=== PATIENT | female | born 1995 | race Caucasian/White ===

== ENCOUNTER 2018-05-04 12:41 | Emergency (ER) | payer OTHER ==
[2018-05-04] MEDS ORDERED: Sodium Chloride 0.9% 2.5 ML Syringe FLUSH PRN (12:43)
[2018-05-04] MEDS ORDERED: Sodium Chloride 0.9% 10 ML Syringe FLUSH PRN (12:43)
--- NOTE | 2018-05-04 13:08 | EDM.PDOC ---
ED HPI GENERAL MEDICAL PROBLEM - General Chief Complaint: BIOCHEMIST Problem Stated Complaint: 15 WKS WITH BLEEDING Time Seen by Provider: 05/04/18 12:58 - History of Present Illness INITIAL COMMENTS - FREE TEXT/NARRATIVE: HISTORY AND PHYSICAL: History of present illness: The patient is a 22-year-old female who is a 2 para one with LMP of January 18 who is 15 weeks by that date and had an in office ultrasound with Dr. George at the beginning of the month documenting an IUP and who presents today with an episode of vaginal bleeding. The patient says that this is been an uneventful and she has no pre-existing medical problems or surgical history. She said she woke at 6:30 this morning and did not have blood in her underwear and was taking a shower when she passed a small clot and a small amount of blood in the shower. Since that time she has not had any vaginal bleeding and has not used the pads and has only seen a scant amount of pink blood on the toilet paper when she wipes. She has had some lower abdominal cramping radiating to her back. The patient has had no vomiting dysuria frequency flank pain or diarrhea and has had no fever chills or runny nose. Review of systems: As per history of present illness and below otherwise all systems reviewed and negative. Past medical history: As per history of present illness and as reviewed below otherwise noncontributory. Surgical history: As per history of present illness and as reviewed below otherwise noncontributory. Social history: No reported history of drug or alcohol abuse. Family history: As per history of present illness and as reviewed below otherwise noncontributory. Physical exam: General: Well-developed well-nourished female who is nontoxic and vital signs are reviewed by me HEENT: Atraumatic, normocephalic, negative for conjunctival pallor or scleral icterus, mucous membranes moist, throat clear, neck supple, nontender, trachea midline. Lungs: Clear to auscultation, breath sounds equal bilaterally, chest nontender. Heart: S1S2, regular rate and rhythm no overt murmurs Abdomen: Soft, nondistended, nontender. Negative for masses or hepatosplenomegaly. Negative for costovertebral tenderness. Pelvis: Stable nontender. Genitourinary: Deferred. Rectal: Deferred. Extremities: Atraumatic, negative for cords or calf pain. Neurovascular unremarkable. Neuro: Awake, alert, oriented. Cranial nerves II through XII unremarkable. Cerebellum unremarkable. Motor and sensory unremarkable throughout. Exam nonfocal. Diagnostics: CBC serum quantitative hCG UA urine culture if indicated pelvic ultrasound And has a documented O+ blood type in the computer Therapeutics: [] 1435: Ultrasound results and case were discussed with Dr. George and he will see the patient on Wednesday. As it turns out the patient already has a scheduled appointment in the afternoon on Wednesday to see him and he knows that she will be coming on that date to discuss further care and treatment of a demise. The patient is aware of the ultrasound results and the labs and is aware of reasons to return to the ED. Impression: Second trimester bleeding in , demise Definitive disposition and diagnosis as appropriate pending reevaluation and review of above. Abdominal Pain Score (Numeric/FACES): 6 - Related Data Allergies Allergy/AdvReac Type Severity Reaction Status Date / Time No Known Allergies Allergy Verified 05/04/18 12:54 Home Meds: Home Meds . [No Known Home Meds] 05/04/18 [History] Past Medical History - Past Health History Medical/Surgical History: Denies Medical/Surgical History - Infectious Disease History Infectious Disease History: Reports: None Social & Family History - Family History Family Medical History: Noncontributory - Tobacco Use Smoking Status *Q: Current Every Day Smoker Years of Tobacco use: 8 Packs/Tins Daily: 0.1 - Caffeine Use Caffeine Use: Reports: None - Recreational Drug Use Recreational Drug Use: No ED ROS GENERAL - Review of Systems Review Of Systems: ROS reveals no pertinent complaints other than HPI. ED EXAM, GENERAL - Physical Exam Exam: See Below (see dictation) Course - Vital Signs Last Recorded V/S: Last Vital Signs Temp 36.6 C 05/04/18 12:54 Pulse 81 05/04/18 12:54 Resp 16 05/04/18 12:54 BP 124/81 05/04/18 12:54 Pulse Ox 99 05/04/18 12:54 - Orders/Labs/Meds Orders: Active Orders 24 hr Category Date Time Status OB Ltd 1 or More Fetus [US] Stat Exams 05/04/18 13:04 Taken UA W/MICROSCOPIC [URIN] Stat Lab 05/04/18 13:08 Ordered Labs: Laboratory Tests 05/04/18 05/04/18 05/04/18 Range/Units 13:08 13:37 13:37 WBC 11.22 H (4.0-11.0) K/uL RBC 4.23 L (4.30-5.90) M/uL Hgb 12.3 (12.0-16.0) g/dL Hct 36.9 (36.0-46.0) % MCV 87.2 (80.0-98.0) fL MCH 29.1 (27.0-32.0) pg MCHC 33.3 (31.0-37.0) g/dL RDW Std Deviation 40.0 (28.0-62.0) fl RDW Coeff of Rosa 13 (11.0-15.0) % Plt Count 247 (150-400) K/uL MPV 10.80 (7.40-12.00) fL Neut % (Auto) 69.0 (48.0-80.0) % Lymph % (Auto) 23.1 (16.0-40.0) % Park % (Auto) 6.1 (0.0-15.0) % Eos % (Auto) 1.5 (0.0-7.0) % Baso % (Auto) 0.3 (0.0-1.5) % Neut # (Auto) 7.8 H (1.4-5.7) K/uL Lymph # (Auto) 2.6 H (0.6-2.4) K/uL Park # (Auto) 0.7 (0.0-0.8) K/uL Eos # (Auto) 0.2 (0.0-0.7) K/uL Baso # (Auto) 0.0 (0.0-0.1) K/uL Nucleated RBC % 0.0 /100WBC Nucleated RBCs # 0 K/uL HCG, Quant 797.0 mIU/mL Urine Color YELLOW Urine Appearance CLEAR Urine pH 6.0 (5.0-8.0) Ur Specific [place] >= 1.030 (1.001-1.035) Urine Protein NEGATIVE (NEGATIVE) mg/dL Urine Glucose (UA) NEGATIVE (NEGATIVE) mg/dL Urine Ketones 15 H (NEGATIVE) mg/dL Urine Occult Blood TRACE-INTACT (NEGATIVE) Urine Nitrite NEGATIVE (NEGATIVE) Urine Bilirubin NEGATIVE (NEGATIVE) Urine Urobilinogen 0.2 (<2.0) EU/dL Ur Leukocyte Esterase NEGATIVE (NEGATIVE) Urine RBC 1-2 (0-2/HPF) Urine WBC 0-1 (0-5/HPF) Ur Epithelial Cells OCCASIONAL (NONE-FEW) Urine Bacteria RARE (NEGATIVE) Meds: Medications Discontinued Medications Generic Name Dose Route Start Last Admin Trade Name Freq PRN Reason Stop Dose Admin Sodium Chloride 10 ml 05/04/18 12:43 Saline Flush FLUSH ASDIRECTED PRN Keep Vein Open Sodium Chloride 2.5 ml 05/04/18 12:43 Saline Flush FLUSH ASDIRECTED PRN Keep Vein Open Departure - Departure Time of Disposition: 14:43 Disposition: Home, Self-Care 01 Condition: Good Clinical Impression: demise - Discharge Information Referrals: PCP,None [Primary Care Provider] - Forms: ED Department Discharge Additional Instructions: The following information is given to patients seen in the emergency department who are being discharged to home. This information is to outline your options for follow-up care. We provide all patients seen in our emergency department with a follow-up referral. The need for follow-up, as well as the timing and circumstances, are variable depending upon the specifics of your emergency department visit. If you don't have a primary care physician on staff, we will provide you with a referral. We always advise you to contact your personal physician following an emergency department visit to inform them of the circumstance of the visit and for follow-up with them and/or the need for any referrals to a consulting specialist. The emergency department will also refer you to a specialist when appropriate. This referral assures that you have the opportunity for followup care with a specialist. All of these measure are taken in an effort to provide you with optimal care, which includes your followup. Under all circumstances we always encourage you to contact your private physician who remains a resource for coordinating your care. When calling for followup care, please make the office aware that this follow-up is from your recent emergency room visit. If for any reason you are refused follow-up, please contact the [facility] emergency department at and ask to speak to the emergency department charge nurse. [facility] [address] [place] [address] Push hydration and rest and strict pelvic rest with no sexual intercourse until you're seen by Dr. George on Wednesday. These keep your appointment on Wednesday as scheduled with him to discuss future care plan. Return to ER as needed and as discussed. - My Orders Last 24 Hours: My Active Orders 05/04/18 13:04 OB Ltd 1 or More Fetus [US] Stat - Assessment/Plan Last 24 Hours: My Active Orders 05/04/18 13:04 OB Ltd 1 or More Fetus [US] Stat
[2018-05-04 15:07] VITALS: BP 127/74
--- NOTE | 2018-05-04 18:20 | US ---
EXAM DATE: 05/04/18 PATIENT'S AGE: 22 Patient: ANAND GALVAN Facility: [place], [place] Site . Site : 1995 Study: US OB Pelvis [id number] 1:37:28 PM Ordering Physician: Pamela Buck Final Report: HISTORY: Abdominal pain, vaginal bleeding. TECHNIQUE: Limited obstetric ultrasound. Transabdominal imaging performed. COMPARISON: No prior. FINDINGS: There is a single intrauterine gestation with a calculated gestational age based on ultrasound measurements of 13 weeks, 5 days. This lags behind a clinical age of 15 weeks, 5 days based on LMP. The estimated weight is 88 g which is at the less than 3rd percentile. No cardiac activity is seen compatible with demise. No subchorionic bleed appreciated. Cervix appears closed measuring on the order of 3 centimeters. - Measurements: Biparietal diameter 2 cm 13 weeks, 2 days. Head circumference 8.4 cm 13 weeks 5 days. Abdominal circumference 7.3 cm 13 weeks, 6 days. Femur length 4.5 cm 14 weeks, 2 days. IMPRESSION: 1. Single intrauterine gestation without cardiac activity detected compatible with demise. 2. Cervix appears closed. 3. Report called to Dr. Santiago on 05/04/2018 at 14:23 hours. Dictated by Jatin Watkins MD @ 05/04/2018 2:25:11 PM Dictated by: Jatin Watkins MD @ 05/04/2018 14:25:17 (Electronic Signature) Report Signed by Proxy. LUIGI
== END 2018-05-04 14:54 | disposition home or self-care (01) ==
LOC: MW.ED 12:41
DX: O02.1 Missed abortion (principal)
CPT/HCPCS: 36415; 76815; 76815-26; 81001; 84702; 85025; 99284-25

== ENCOUNTER 2018-05-05 03:38 | Emergency (ER) | payer OTHER ==
--- NOTE | 2018-05-05 03:51 | EDM.PDOC ---
ED HPI GENERAL MEDICAL PROBLEM - General Chief Complaint: Genitourinary Problem Stated Complaint: MISCARRIAGE Time Seen by Provider: 05/05/18 03:43 - History of Present Illness INITIAL COMMENTS - FREE TEXT/NARRATIVE: HISTORY AND PHYSICAL: History of present illness: Patient is a 22-year-old female who had approximately 13 week intrauterine that was seen initially in the ER and diagnosed with demise she had an ultrasound at that time that demonstrated a 13 week intrauterine this was single in nature and without cardiac activity she presents tonight with vaginal bleeding that she describes as small to moderate not particularly increased from yesterday and states she has passed some tissue. She is a crampy discomfort with this which is her chief complaint chest pain shortness of breath dizziness or other concern Review of systems: As per history of present illness and below otherwise all systems reviewed and negative. Past medical history: As per history of present illness and as reviewed below otherwise noncontributory. Surgical history: As per history of present illness and as reviewed below otherwise noncontributory. Social history: No reported history of drug or alcohol abuse. Family history: As per history of present illness and as reviewed below otherwise noncontributory. Physical exam: HEENT: Atraumatic, normocephalic, pupils reactive, negative for conjunctival pallor or scleral icterus, mucous membranes moist, throat clear, neck supple, nontender, trachea midline. Lungs: Clear to auscultation, breath sounds equal bilaterally, chest nontender. Heart: S1S2, regular, negative for clicks, rubs, or JVD. Abdomen: Soft, nondistended, no localized tenderness. Negative for masses or hepatosplenomegaly. Negative for costovertebral tenderness. Pelvis: Stable nontender. Genitourinary: Deferred. Rectal: Deferred. Extremities: Atraumatic, negative for cords or calf pain. Neurovascular unremarkable. Neuro: Awake, alert, oriented. Cranial nerves II through XII unremarkable. Cerebellum unremarkable. Motor and sensory unremarkable throughout. Exam nonfocal. Diagnostics: CBC CMP quantitative beta-hCG Therapeutics: Saline 1 L bolus morphine sulfate 2 mg IV Zofran 4 mg IV Impression: #1 demise Definitive disposition and diagnosis as appropriate pending reevaluation and review of above. - Related Data Allergies Allergy/AdvReac Type Severity Reaction Status Date / Time No Known Allergies Allergy Verified 05/04/18 12:54 Home Meds: Home Meds . [No Known Home Meds] 05/04/18 [History] Past Medical History - Past Health History Medical/Surgical History: Denies Medical/Surgical History - Infectious Disease History Infectious Disease History: Reports: None Social & Family History - Family History Family Medical History: Noncontributory - Caffeine Use Caffeine Use: Reports: None ED ROS GENERAL - Review of Systems Review Of Systems: ROS reveals no pertinent complaints other than HPI. ED EXAM, GENERAL - Physical Exam Exam: See Below (dictation) Course - Vital Signs Last Recorded V/S: Last Vital Signs Temp 36.3 C 05/05/18 04:06 Pulse 130 H 05/05/18 04:06 Resp 18 05/05/18 04:06 BP 95/56 L 05/05/18 04:06 Pulse Ox 97 05/05/18 04:06 - Orders/Labs/Meds Orders: Active Orders 24 hr Category Date Time Status COMPREHENSIVE METABOLIC PN,CMP [CHEM] Stat Lab 05/05/18 03:53 Results HCG QUANTITATIVE,SERUM [CHEM] Stat Lab 05/05/18 03:53 Results Labs: Laboratory Tests 05/05/18 05/05/18 Range/Units 03:53 03:53 WBC 11.87 H (4.0-11.0) K/uL RBC 4.09 L (4.30-5.90) M/uL Hgb 12.0 (12.0-16.0) g/dL Hct 35.8 L (36.0-46.0) % MCV 87.5 (80.0-98.0) fL MCH 29.3 (27.0-32.0) pg MCHC 33.5 (31.0-37.0) g/dL RDW Std Deviation 40.2 (28.0-62.0) fl RDW Coeff of Rosa 13 (11.0-15.0) % Plt Count 253 (150-400) K/uL MPV 10.40 (7.40-12.00) fL Neut % (Auto) 68.0 (48.0-80.0) % Lymph % (Auto) 23.3 (16.0-40.0) % [place] % (Auto) 6.5 (0.0-15.0) % Eos % (Auto) 1.9 (0.0-7.0) % Baso % (Auto) 0.3 (0.0-1.5) % Neut # (Auto) 8.1 H (1.4-5.7) K/uL Lymph # (Auto) 2.8 H (0.6-2.4) K/uL [place] # (Auto) 0.8 (0.0-0.8) K/uL Eos # (Auto) 0.2 (0.0-0.7) K/uL Baso # (Auto) 0.0 (0.0-0.1) K/uL Nucleated RBC % 0.0 /100WBC Nucleated RBCs # 0 K/uL Sodium 141 (136-145) mmol/L Potassium 4.1 (3.5-5.1) mmol/L Chloride 106 (98-107) mmol/L Carbon Dioxide 23.4 (21.0-32.0) mmol/L BUN 14 (7.0-18.0) mg/dL Creatinine 0.8 (0.6-1.0) mg/dL Est Cr Clr Drug Dosing 90.47 mL/min Estimated GFR (MDRD) > 60.0 ml/min Glucose (74-106) mg/dL AST 18 (15-37) IU/L ALT 20 (14-63) IU/L Total Protein 9.1 H (6.4-8.2) g/dL Albumin 3.3 L (3.4-5.0) g/dL Globulin 5.8 H (2.0-3.5) g/dL Albumin/Globulin Ratio 0.6 L (1.3-2.8) Meds: Medications Discontinued Medications Generic Name Dose Route Start Last Admin Trade Name Freq PRN Reason Stop Dose Admin Sodium Chloride 1,000 mls @ 999 mls/hr 05/05/18 03:58 05/05/18 04:21 Normal Saline IV 05/05/18 04:58 999 mls/hr .Bolus ONE Administration Morphine Sulfate 2 mg 05/05/18 03:58 05/05/18 04:06 Morphine IVPUSH 05/05/18 03:59 2 mg ONETIME ONE Administration Ondansetron HCl 4 mg 05/05/18 03:58 05/05/18 04:08 Zofran IVPUSH 05/05/18 03:59 4 mg ONETIME ONE Administration Departure - Departure Time of Disposition: 05:13 Disposition: Home, Self-Care 01 Condition: Good Clinical Impression: demise - Discharge Information *PRESCRIPTION DRUG MONITORING PROGRAM REVIEWED*: Not Applicable *COPY OF PRESCRIPTION DRUG MONITORING REPORT IN PATIENT ZACHARIAH: Not Applicable Referrals: PCP,None [Primary Care Provider] - Forms: ED Department Discharge Additional Instructions: The following information is given to patients seen in the emergency department who are being discharged to home. This information is to outline your options for follow-up care. We provide all patients seen in our emergency department with a follow-up referral. The need for follow-up, as well as the timing and circumstances, are variable depending upon the specifics of your emergency department visit. If you don't have a primary care physician on staff, we will provide you with a referral. We always advise you to contact your personal physician following an emergency department visit to inform them of the circumstance of the visit and for follow-up with them and/or the need for any referrals to a consulting specialist. The emergency department will also refer you to a specialist when appropriate. This referral assures that you have the opportunity for followup care with a specialist. All of these measure are taken in an effort to provide you with optimal care, which includes your followup. Under all circumstances we always encourage you to contact your private physician who remains a resource for coordinating your care. When calling for followup care, please make the office aware that this follow-up is from your recent emergency room visit. If for any reason you are refused follow-up, please contact the [facility] emergency department at and asked to speak to the emergency department charge nurse. Follow-up with [facility] today return as needed as discussed - My Orders Last 24 Hours: My Active Orders 05/05/18 03:53 COMPREHENSIVE METABOLIC PN,CMP [CHEM] Stat HCG QUANTITATIVE,SERUM [CHEM] Stat - Assessment/Plan Last 24 Hours: My Active Orders 05/05/18 03:53 COMPREHENSIVE METABOLIC PN,CMP [CHEM] Stat HCG QUANTITATIVE,SERUM [CHEM] Stat
[2018-05-05] MEDS ORDERED: Ondansetron 4 MG/2 ML SDV IVPUSH ONE (03:58)
[2018-05-05] MEDS ORDERED: Sodium Chloride 0.9% 1,000 ML IV ONE (03:58)
[2018-05-05] MEDS ORDERED: Morphine 2 MG/ML Syringe IVPUSH ONE ×2 (03:58→05:34)
[2018-05-05 04:41] LABS: CHLORIDE,CL 106 mmol/L (98-107); SODIUM,NA 141 mmol/L (136-145)
[2018-05-05 06:31] VITALS: BP 113/66
== END 2018-05-05 06:27 | disposition home or self-care (01) ==
LOC: MW.ED 03:38
DX: O02.1 Missed abortion (principal); Z3A.13 13 weeks gestation of pregnancy
CPT/HCPCS: 80053; 84702; 85025; 96361; 96374; 96375; 96376; 99284; J2270; J2405; J7040

== ENCOUNTER 2018-09-25 08:48 | Emergency (ER) | payer OTHER ==
[2018-09-25 09:02] VITALS: BP 130/69
[2018-09-25] MEDS ORDERED: Ibuprofen 800 MG Tab PO ONE (09:17)
--- NOTE | 2018-09-25 09:21 | EDM.PDOC ---
ED HPI GENERAL MEDICAL PROBLEM - General Chief Complaint: ENT Problem Stated Complaint: EAR INFECTION AND SORE THROAT Time Seen by Provider: 09/25/18 09:04 Source of Information: Reports: Patient History Limitations: Reports: No Limitations - History of Present Illness INITIAL COMMENTS - FREE TEXT/NARRATIVE: History of present illness: []Patient has a 4 day history of sore throat and ear pressure. She's been taking NyQuil with relief at night. Patient denies any fevers, chills, nausea or vomiting. Review of systems: As per history of present illness and below otherwise all systems reviewed and negative. Past medical history: As per history of present illness and as reviewed below otherwise noncontributory. Surgical history: As per history of present illness and as reviewed below otherwise noncontributory. Social history: No reported history of drug or alcohol abuse. Family history: As per history of present illness and as reviewed below otherwise noncontributory. Physical exam: General: Well developed, well nourished in NAD HEENT: Atraumatic, normocephalic, pupils reactive, negative for conjunctival pallor or scleral icterus, mucous membranes moist, throat erythema with exudate , neck supple, nontender, trachea midline. TMs clear there is no air-fluid levels/ bubbles behind the right TM. Lungs: Clear to auscultation, breath sounds equal bilaterally, chest nontender. Heart: S1S2, regular, negative for clicks, rubs, or JVD. Abdomen: NABS, Soft, nondistended, nontender. Negative for masses or hepatosplenomegaly. Negative for costovertebral tenderness. Pelvis: Stable nontender. Genitourinary: Deferred. Rectal: Deferred. Extremities: Atraumatic, negative for cords or calf pain. Neurovascular unremarkable. Neuro: Awake, alert, oriented. Cranial nerves II through XII unremarkable. Cerebellum unremarkable. Motor and sensory unremarkable throughout. Exam nonfocal. Skin:warm and dry Diagnostics: Strep culture negative Therapeutics: Ibuprofen ED Course: Unremarkable Impression: Acute pharyngitis Prescriptions: 5 days Plan: Take [id number] decongestants, prednisone as directed ibuprofen Tylenol for pain and fevers. Definitive disposition and diagnosis as appropriate pending reevaluation and review of above. 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 Musculoskeletal History: Reports: None Neurological History: Reports: None Psychiatric History: Reports: None Endocrine/Metabolic History: Reports: None Hematologic History: Reports: None Immunologic History: Reports: None Oncologic (Cancer) History: Reports: None Dermatologic History: Reports: None - Infectious Disease History Infectious Disease History: Reports: None - Past Surgical History Head Surgeries/Procedures: Reports: None HEENT Surgical History: Reports: None Cardiovascular Surgical History: Reports: None Respiratory Surgical History: Reports: None GI Surgical History: Reports: None Female Surgical History: Reports: None Endocrine Surgical History: Reports: None Neurological Surgical History: Reports: None Musculoskeletal Surgical History: Reports: None Oncologic Surgical History: Reports: None Dermatological Surgical History: Reports: None Social & Family History - Family History Family Medical History: Noncontributory - Tobacco Use Smoking Status *Q: Current Every Day Smoker Years of Tobacco use: 6 Packs/Tins Daily: 0.5 - Caffeine Use Caffeine Use: Reports: Coffee, Energy Drinks, Soda, Tea - Alcohol Use Days Per Week of Alcohol Use: 7 Number of Drinks Per Day: 7 Total Drinks Per Week: 49 - Recreational Drug Use Recreational Drug Use: No ED ROS ENT - Review of Systems Review Of Systems: ROS reveals no pertinent complaints other than HPI. ED EXAM, ENT - Physical Exam Exam: See Below (See history of present illness) Course - Vital Signs Last Recorded V/S: Last Vital Signs Temp 98.1 F 09/25/18 08:59 Pulse 124 H 09/25/18 08:59 Resp 18 09/25/18 08:59 BP 130/69 09/25/18 08:59 Pulse Ox 97 09/25/18 08:59 - Orders/Labs/Meds Orders: Active Orders 24 hr Category Date Time Status CULTURE STREP A CONFIRMATION [RM] Stat Lab 09/25/18 09:05 Results STREP SCRN A RAPID W CULT CONF [RM] Stat Lab 09/25/18 09:05 Results Meds: Medications Discontinued Medications Generic Name Dose Route Start Last Admin Trade Name Clarence PRN Reason Stop Dose Admin Ibuprofen 800 mg 09/25/18 09:17 09/25/18 09:30 Motrin PO 09/25/18 09:18 800 mg ONETIME ONE Administration Departure - Departure Time of Disposition: 09:40 Disposition: Home, Self-Care 01 Condition: Good Clinical Impression: Exudative pharyngitis - Discharge Information *PRESCRIPTION DRUG MONITORING PROGRAM REVIEWED*: No *COPY OF PRESCRIPTION DRUG MONITORING REPORT IN PATIENT ZACHARIAH: No Prescriptions: predniSONE [Prednisone] 20 mg PO DAILY #5 tablet Referrals: PCP,Unknown [Primary Care Provider] - Forms: ED Department Discharge Additional Instructions: The following information is given to patients seen in the emergency department who are being discharged to home. This information is to outline your options for follow-up care. We provide all patients seen in our emergency department with a follow-up referral. The need for follow-up, as well as the timing and circumstances, are variable depending upon the specifics of your emergency department visit. If you don't have a primary care physician on staff, we will provide you with a referral. We always advise you to contact your personal physician following an emergency department visit to inform them of the circumstance of the visit and for follow-up with them and/or the need for any referrals to a consulting specialist. The emergency department will also refer you to a specialist when appropriate. This referral assures that you have the opportunity for follow-up care with a specialist. All of these measure are taken in an effort to provide you with optimal care, which includes your follow-up. Under all circumstances we always encourage you to contact your private physician who remains a resource for coordinating your care. When calling for follow-up care, please make the office aware that this follow-up is from your recent emergency room visit. If for any reason you are refused follow-up, please contact the [facility] Emergency Department at and asked to speak to the emergency department charge nurse. [facility] [address] [place] [id number] - My Orders Last 24 Hours: My Active Orders 09/25/18 09:05 CULTURE STREP A CONFIRMATION [RM] Stat STREP SCRN A RAPID W CULT CONF [] Stat - Assessment/Plan Last 24 Hours: My Active Orders 09/25/18 09:05 CULTURE STREP A CONFIRMATION [RM] Stat STREP SCRN A RAPID W CULT CONF [RM] Stat
== END 2018-09-25 09:55 | disposition home or self-care (01) ==
LOC: MW.ED 08:48
DX: J02.9 Acute pharyngitis, unspecified (principal); F17.210 Nicotine dependence, cigarettes, uncomplicated
CPT/HCPCS: 87081; 87880; 99283; A9270

== ENCOUNTER 2019-02-01 20:29 | Emergency (ER) | payer SELFPAY ==
--- NOTE | 2019-02-01 20:34 | EDM.PDOC ---
ED HPI GENERAL MEDICAL PROBLEM - General Stated Complaint: 9 WKS AND HAVING PAINS Time Seen by Provider: 02/01/19 20:33 Source of Information: Reports: Patient - History of Present Illness INITIAL COMMENTS - FREE TEXT/NARRATIVE: HISTORY AND PHYSICAL: History of present illness: [Patient reports that she was with approximately 9 week however she is uncertain of her LMP Has a history of 2 prior miscarriages and these records are on file no fever nausea vomiting chills sweats no chest pain shortness breath headache dizziness palpitation no bowel or urine symptoms small crampy abdominal pain 2 out of 10 nonradiating rated as tolerable ] Review of systems: As per history of present illness and below otherwise all systems reviewed and negative. Past medical history: As per history of present illness and as reviewed below otherwise noncontributory. Surgical history: As per history of present illness and as reviewed below otherwise noncontributory. Social history: No reported history of drug or alcohol abuse. Family history: As per history of present illness and as reviewed below otherwise noncontributory. Physical exam: HEENT: Atraumatic, normocephalic, pupils reactive, negative for conjunctival pallor or scleral icterus, mucous membranes moist, throat clear, neck supple, nontender, trachea midline. Lungs: Clear to auscultation, breath sounds equal bilaterally, chest nontender. Heart: S1S2, regular, negative for clicks, rubs, or JVD. Abdomen: Soft, nondistended, nontender. Negative for masses or hepatosplenomegaly. Negative for costovertebral tenderness. Pelvis: Stable nontender. Genitourinary: Deferred. Rectal: Deferred. Extremities: Atraumatic, negative for cords or calf pain. Neurovascular unremarkable. Neuro: Awake, alert, oriented. Cranial nerves II through XII unremarkable. Cerebellum unremarkable. Motor and sensory unremarkable throughout. Exam nonfocal. Diagnostics: [EBC CMP hCG Quant OB ultrasound limited ] Therapeutics: [Normal saline ] Impression: [Abdominal pain/cramps-improved ]ABO type O positive on file Blighted ovum versus very early Definitive disposition and diagnosis as appropriate pending reevaluation and review of above. abdominal Pain Score (Numeric/FACES): 4 - Related Data Allergies Allergy/AdvReac Type Severity Reaction Status Date / Time No Known Allergies Allergy Verified 02/01/19 20:44 Home Meds: Home Meds . 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 Musculoskeletal History: Reports: None Neurological History: Reports: None Psychiatric History: Reports: None Endocrine/Metabolic History: Reports: None Hematologic History: Reports: None Immunologic History: Reports: None Oncologic (Cancer) History: Reports: None Dermatologic History: Reports: None - Infectious Disease History Infectious Disease History: Reports: None - Past Surgical History Head Surgeries/Procedures: Reports: None HEENT Surgical History: Reports: None Cardiovascular Surgical History: Reports: None Respiratory Surgical History: Reports: None GI Surgical History: Reports: None Female Surgical History: Reports: None Endocrine Surgical History: Reports: None Neurological Surgical History: Reports: None Musculoskeletal Surgical History: Reports: None Oncologic Surgical History: Reports: None Dermatological Surgical History: Reports: None Social & Family History - Family History Family Medical History: Noncontributory - Caffeine Use Caffeine Use: Reports: Coffee, Energy Drinks, Soda, Tea ED ROS GENERAL - Review of Systems Review Of Systems: See Below ED EXAM, GENERAL - Physical Exam Exam: See Below Course - Vital Signs Last Recorded V/S: Last Vital Signs Temp 97.1 F 02/01/19 23:39 Pulse 75 02/01/19 23:39 Resp 14 02/01/19 23:39 BP 123/72 02/01/19 23:39 Pulse Ox 98 02/01/19 22:39 - Orders/Labs/Meds Orders: Active Orders 24 hr Category Date Time Status OB Ltd 1 or More Fetus [US] Stat Exams 02/01/19 20:51 Taken CULTURE URINE [RM] Stat Lab 02/01/19 20:48 Received Labs: Laboratory Tests 02/01/19 02/01/19 02/01/19 Range/Units 20:36 20:36 20:48 WBC 15.08 H (4.0-11.0) K/uL RBC 4.57 (4.30-5.90) M/uL Hgb 13.6 (12.0-16.0) g/dL Hct 41.8 (36.0-46.0) % MCV 91.5 (80.0-98.0) fL MCH 29.8 (27.0-32.0) pg MCHC 32.5 (31.0-37.0) g/dL RDW Std Deviation 45.0 (28.0-62.0) fl RDW Coeff of Rosa 14 (11.0-15.0) % Plt Count 289 (150-400) K/uL MPV 11.20 (7.40-12.00) fL Neut % (Auto) 66.1 (48.0-80.0) % Lymph % (Auto) 23.6 (16.0-40.0) % Reagan % (Auto) 8.4 (0.0-15.0) % Eos % (Auto) 1.5 (0.0-7.0) % Baso % (Auto) 0.4 (0.0-1.5) % Neut # (Auto) 10.0 H (1.4-5.7) K/uL Lymph # (Auto) 3.6 H (0.6-2.4) K/uL Reagan # (Auto) 1.3 H (0.0-0.8) K/uL Eos # (Auto) 0.2 (0.0-0.7) K/uL Baso # (Auto) 0.1 (0.0-0.1) K/uL Nucleated RBC % 0.0 /100WBC Nucleated RBCs # 0 K/uL Sodium 139 (136-145) mmol/L Potassium 3.9 (3.5-5.1) mmol/L Chloride 104 (98-107) mmol/L Carbon Dioxide 25.9 (21.0-32.0) mmol/L BUN 16 (7.0-18.0) mg/dL Creatinine 1.0 (0.6-1.0) mg/dL Est Cr Clr Drug Dosing 68.61 mL/min Estimated GFR (MDRD) > 60.0 ml/min Glucose 97 (74-106) mg/dL Calcium 9.3 (8.5-10.1) mg/dL Total Bilirubin 0.3 (0.2-1.0) mg/dL AST 24 (15-37) IU/L ALT 35 (14-63) IU/L Alkaline Phosphatase 89 (46-116) U/L Total Protein 8.2 (6.4-8.2) g/dL Albumin 4.3 (3.4-5.0) g/dL Globulin 3.9 (2.6-4.0) g/dL Albumin/Globulin Ratio 1.1 (0.9-1.6) HCG, Quant 466.0 mIU/mL Urine Color YELLOW Urine Appearance CLEAR Urine pH 6.5 (5.0-8.0) Ur Specific [place] <= 1.005 (1.001-1.035) Urine Protein NEGATIVE (NEGATIVE) mg/dL Urine Glucose (UA) NEGATIVE (NEGATIVE) mg/dL Urine Ketones NEGATIVE (NEGATIVE) mg/dL Urine Occult Blood NEGATIVE (NEGATIVE) Urine Nitrite NEGATIVE (NEGATIVE) Urine Bilirubin NEGATIVE (NEGATIVE) Urine Urobilinogen 0.2 (<2.0) EU/dL Ur Leukocyte Esterase TRACE H (NEGATIVE) Urine RBC NONE SEEN (0-2/HPF) Urine WBC 0-2 (0-5/HPF) Ur Epithelial Cells MODERATE (NONE-FEW) Urine Bacteria 1+ H (NEGATIVE) Departure - Departure Time of Disposition: 23:50 Disposition: Home, Self-Care 01 Condition: Good Clinical Impression: - Discharge Information Additional Instructions: Follow-up as scheduled on February 15 with Carri Romero Repeat hCG possibly repeat ultrasound [place] if symptoms persist or worsen in the interim - My Orders Last 24 Hours: My Active Orders 02/01/19 20:48 CULTURE URINE [RM] Stat 02/01/19 20:51 OB Ltd 1 or More Fetus [US] Stat - Assessment/Plan Last 24 Hours: My Active Orders 02/01/19 20:48 CULTURE URINE [RM] Stat 02/01/19 20:51 OB Ltd 1 or More Fetus [US] Stat
[2019-02-01 21:27] LABS: CHLORIDE,CL 104 mmol/L (98-107); SODIUM,NA 139 mmol/L (136-145)
[2019-02-01 23:39] VITALS: BP 123/72
--- NOTE | 2019-02-02 11:14 | US ---
EXAM DATE: 02/01/19 PATIENT'S AGE: 23 Patient: ANAND GALVAN Facility: [facility] Site Site : 1995 Study: US-OB Pelvis [id number]/01/2019 10:49:13 PM Ordering Physician: ETHAN Final Report: INDICATION: and cramping. Beta hCG 466. LMP 12/16/2018 COMPARISON: None available. FINDINGS: Transvaginal ultrasound examination of the female pelvis was performed. The uterus is anteverted with no evidence of mass. It measures 9.0 x 5.5 x 5.6 cm. There is marked thickening of the endometrial lining with heterogeneous areas of increased and decreased density consistent with hemorrhage. There is no identifiable intrauterine gestational sac. The findings are consistent with a completed spontaneous versus a blighted ovum. An early intrauterine gestation or ectopic gestation seem unlikely but cannot be entirely excluded. The ovaries are normal in appearance, the right measuring 2.1 x 2.0 x 2.4 cm and the left measuring 1.9 x 2.7 x 2.3 cm. There is normal color and pulse doppler flow in both ovaries. There is no sign of free fluid in the pelvis. IMPRESSION: No identifiable intrauterine gestational sac. Large amount of heterogeneous material within the uterine cavity, consistent with blood clot and possibly products of conception. Differential diagnosis includes completed spontaneous versus blighted ovum. Cannot entirely exclude early intrauterine gestation or ectopic gestation, but these are unlikely given the presence of the large amount of clot and tissue in the uterine cavity. Dictated by Jhonatan Delgado MD @ Feb 01 2019 10:51PM Signed by: Jhonatan Delgado MD @02/01/2019 10:56:42 PM (Electronic Signature) Report Signed by Proxy. LUIGI
== END 2019-02-01 23:55 | disposition home or self-care (01) ==
LOC: MW.ED 20:29
DX: O99.89 Other specified diseases and conditions complicating pregnancy, childbirth and the puerperium (principal); R10.9 Unspecified abdominal pain; Z3A.09 9 weeks gestation of pregnancy
CPT/HCPCS: 36415; 76815; 76815-26; 80053; 81001; 84702; 85025; 87086; 99283; 99284-25

== ENCOUNTER 2020-03-14 15:42 | Emergency (ER) | payer SELFPAY ==
[2020-03-14] MEDS ORDERED: Penicillin G Benzathine 1,200,000 Units/2 ML Syringe IM ONE (15:54)
--- NOTE | 2020-03-14 16:02 | EDM.PDOC ---
ED HPI GENERAL MEDICAL PROBLEM - General Chief Complaint: ENT Problem Stated Complaint: STREP THROAT Time Seen by Provider: 03/14/20 15:46 - History of Present Illness INITIAL COMMENTS - FREE TEXT/NARRATIVE: 24-year-old female with history of strep throat presents with sore throat for 2 days. She denies fever, chills, hoarse voice, difficulty swallowing, cough. She took amoxicillin for 2 days from an old prescription. ROS: A 10-point review of systems, other than pertinent positives and negatives as stated per HPI, is otherwise negative PHYSICAL EXAM General: AOx4, GCS = 15, No distress HEENT: dry mucous membrane, exudative tonsillar swelling bilaterally, no tenderness to submandibular space, no hoarse voice. Neck: supple, no meningismus, no Kernig or Brudzinski Cardiac: S1S2 RRR Respiratory: CTAB, no crackles or rales, no wheezing Abdomen: Soft, nontender, no rebound or guarding, nondistended, no pulsatile mass. Back: nontender Musculoskeletal: NVI distally, no deformity Neuro: No focal deficits, CN 2 - 12 WNL. - Related Data Allergies Allergy/AdvReac Type Severity Reaction Status Date / Time No Known Allergies Allergy Verified 03/14/20 15:55 Home Meds: Home Meds . 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 Musculoskeletal History: Reports: None Neurological History: Reports: None Psychiatric History: Reports: None Endocrine/Metabolic History: Reports: None Hematologic History: Reports: None Immunologic History: Reports: None Oncologic (Cancer) History: Reports: None Dermatologic History: Reports: None - Infectious Disease History Infectious Disease History: Reports: None - Past Surgical History Head Surgeries/Procedures: Reports: None HEENT Surgical History: Reports: None Cardiovascular Surgical History: Reports: None Respiratory Surgical History: Reports: None GI Surgical History: Reports: None Female Surgical History: Reports: None Endocrine Surgical History: Reports: None Neurological Surgical History: Reports: None Musculoskeletal Surgical History: Reports: None Oncologic Surgical History: Reports: None Dermatological Surgical History: Reports: None Social & Family History - Family History Family Medical History: Noncontributory - Caffeine Use Caffeine Use: Reports: Coffee, Energy Drinks, Soda, Tea ED ROS ENT - Review of Systems Review Of Systems: Comprehensive ROS is negative, except as noted in HPI. ED EXAM, ENT - Physical Exam Exam: See Below (See dictation) Course - Vital Signs Last Recorded V/S: Last Vital Signs Temp 96.8 F L 03/14/20 15:53 Pulse 107 H 03/14/20 15:53 Resp 16 03/14/20 15:53 BP 132/94 H 03/14/20 15:53 Pulse Ox 97 03/14/20 15:53 - Orders/Labs/Meds Meds: Medications Discontinued Medications Generic Name Dose Route Start Last Admin Trade Name Dwayneq PRN Reason Stop Dose Admin Penicillin G Benzathine 1.2 millunits 03/14/20 15:54 Bicillin L-A IM 03/14/20 15:55 ONETIME ONE - Re-Assessments/Exams Free Text/Narrative Re-Assessment/Exam: 03/14/20 15:58 After IM penicillin G treatments, she is stable for discharge. I performed a repeat examination and the patient has not demonstrated any new abnormal findings. Patient exhibits normal vital signs and has exhibited a normal gait. I advised the patient to return to the ER for reevaluation if symptoms worsened, and to follow up with their PCP within 2-3 days. MEDICAL DECISION MAKING: I reviewed the patients past medical records, lab and radiographic findings. I discussed the case with the patient. My differential diagnosis included: Strep pharyngitis, viral pharyngitis, tonsillitis. Patient has no fever, stridor, hoarseness, difficulty handling secretions, I do not suspect upper airway obstruction, I do not suspect GRAVITY PROSPECTOR, retropharyngeal abscess, Arcadio's angina, bacterial tracheitis. Departure - Departure Time of Disposition: 15:59 Disposition: Home, Self-Care 01 Condition: Good Clinical Impression: Tonsillitis - Discharge Information *PRESCRIPTION DRUG MONITORING PROGRAM REVIEWED*: Not Applicable *COPY OF PRESCRIPTION DRUG MONITORING REPORT IN PATIENT ZACHARIAH: Not Applicable Referrals: PCP,None [Primary Care Provider] - Forms: ED Department Discharge Additional Instructions: The following information is given to patients seen in the emergency department who are being discharged to home. This information is to outline your options for follow-up care. We provide all patients seen in our emergency department with a follow-up referral. The need for follow-up, as well as the timing and circumstances, are variable depending upon the specifics of your emergency department visit. If you don't have a primary care physician on staff, we will provide you with a referral. We always advise you to contact your personal physician following an emergency department visit to inform them of the circumstance of the visit and for follow-up with them and/or the need for any referrals to a consulting specialist. The emergency department will also refer you to a specialist when appropriate. This referral assures that you have the opportunity for follow-up care with a specialist. All of these measure are taken in an effort to provide you with optimal care, which includes your follow-up. Under all circumstances we always encourage you to contact your private physician who remains a resource for coordinating your care. When calling for follow-up care, please make the office aware that this follow-up is from your recent emergency room visit. If for any reason you are refused follow-up, please contact the [facility] Emergency Department at and asked to speak to the emergency department charge nurse. If you do not have a primary care doctor, please follow up with the clinics below within 3-5 days. [facility] [address] [place] [address] [id number] [address] [address] Sepsis Event Note (ED) - Evaluation Sepsis Screening Result: No Definite Risk - Focused Exam Vital Signs: Vital Signs Temp Pulse Resp BP Pulse Ox 03/14/20 15:53 96.8 F L 107 H 16 132/94 H 97
[2020-03-14 16:50] VITALS: BP 130/87; PULSE 953
== END 2020-03-14 16:46 | disposition home or self-care (01) ==
LOC: MW.ED 15:42
DX: J03.90 Acute tonsillitis, unspecified (principal)
CPT/HCPCS: 96372; 99282; J0561

== ENCOUNTER 2022-05-27 13:38 | Inpatient (IN) | payer SELFPAY ==
[2022-05-27] MEDS: Lactated Ringers 1,000 ML IV SCH ×3 (13:50→15:36)
[2022-05-27] MEDS ORDERED: Misoprostol 200 MCG Tab PO PRN (14:05)
[2022-05-27] MEDS ORDERED: Butorphanol 1 MG/ML SDV IVPUSH PRN (14:05)
[2022-05-27] MEDS ORDERED: Sodium Chloride 0.9% 20 ML SDV IV PRN (14:05)
[2022-05-27] MEDS ORDERED: Terbutaline 1 MG/ML SDV SUBCUT PRN (14:05)
[2022-05-27] MEDS ORDERED: Water For Irrigation,Sterile 1,000 ML Container IRR PRN (14:05)
[2022-05-27] MEDS ORDERED: Methylergonovine 0.2 MG/1 ML Amp IM PRN (14:05)
[2022-05-27] MEDS ORDERED: Sodium Chloride 0.9% 10 ML Syringe FLUSH PRN (14:05)
[2022-05-27] MEDS ORDERED: Carboprost Tromethamine 250 MCG/1 ML Amp IM PRN (14:05)
[2022-05-27] MEDS ORDERED: Lidocaine 1% 50 ML MDV INJECT PRN (14:05)
[2022-05-27] MEDS ORDERED: Sodium Chloride 0.9% 2.5 ML Syringe FLUSH PRN (14:05)
[2022-05-27] MEDS ORDERED: Misoprostol 25 MCG (1/4 of 100 MCG) Tab VAG PRN (14:05)
[2022-05-27] MEDS ORDERED: Tranexamic Acid 1,000 MG in Sodium Chloride 0.9% 100 ML IV PRN (14:05)
[2022-05-27] MEDS ORDERED: Oxytocin/0.9 % Sodium Chloride 30 UNIT/500 ML BAG IV SCH ×2 (14:15)
[2022-05-27] MEDS ORDERED: fentaNYL 100 MCG/2 ML SDV ONE (14:32)
[2022-05-27] MEDS ORDERED: ePHEDrine 50 MG/ML SDV IVPUSH PRN (14:57)
[2022-05-27] MEDS ORDERED: Phenylephrine HCl In 0.9% NaCl 1 MG/10 ML Vial IVPUSH SCH (15:00)
[2022-05-27] MEDS ORDERED: Lanolin 100% Cream 7 GM Tube TOP PRN (15:45)
[2022-05-27] MEDS ORDERED: Bisacodyl 10 MG Supp RECTAL PRN (15:45)
[2022-05-27] MEDS ORDERED: Ibuprofen 400 MG Tab PO PRN (15:45)
[2022-05-27] MEDS ORDERED: Acetaminophen 500 MG Tab PO PRN (15:45)
[2022-05-27] MEDS ORDERED: Benzocaine/Menthol 20%-0.5% Spray 78 GM Cannister TOP PRN (15:45)
[2022-05-27] MEDS: Ibuprofen 800 MG Tab PO PRN (17:59)
[2022-05-27] MEDS: Witch Hazel Medicated Pads 40/Jar TOP PRN (17:59)
[2022-05-27] MEDS: Acetaminophen 500 MG Tab PO PRN (21:32)
[2022-05-27] MEDS: Docusate Sodium 100 MG Cap PO PRN (21:32)
[2022-05-28] MEDS: Ibuprofen 800 MG Tab PO PRN ×3 (00:12→20:55)
[2022-05-28] MEDS: Acetaminophen 500 MG Tab PO PRN ×2 (05:48→15:41)
[2022-05-28] MEDS: Docusate Sodium 100 MG Cap PO PRN (20:57)
[2022-05-29] MEDS: Acetaminophen 500 MG Tab PO PRN (06:52)
[2022-05-29] MEDS: Ibuprofen 800 MG Tab PO PRN (13:27)
[2022-05-29 14:09] VITALS: BP 126/68; PULSE 68
[2022-05-29] MEDS: Witch Hazel Medicated Pads 40/Jar TOP PRN (15:40)
== END 2022-05-29 16:25 | disposition home or self-care (01) | DRG 807 ==
LOC: MW.OBCHECK 13:38 → MW.OB 13:41 → MW.OBCHECK 14:05 → OBSVTOIN 15:57 → MW.OB 20:52
PROVIDERS: ADMIT Obstetrics & Gynecology Obstetrics; ATTEND Obstetrics & Gynecology Obstetrics
PROC: 10E0XZZ Delivery of Products of Conception, External Approach (ICD-10-PCS; principal; 2022-05-27)
PROC: 10907ZC Drainage of Amniotic Fluid, Therapeutic from Products of Conception, Via Natural or Artificial Opening (ICD-10-PCS; 2022-05-27)
DX: O77.0 Labor and delivery complicated by meconium in amniotic fluid (principal); Z37.0 Single live birth; Z3A.39 39 weeks gestation of pregnancy; Z20.822 Contact with and (suspected) exposure to COVID-19
CPT/HCPCS: 36415; 59025; 59409; 85014; 85018; 85027; 86592; 86850; 86900; 86901; A9270-GY; J2590; J3010; J7120; U0002